=== PATIENT | female | born 1995 | race African-American/Black ===

== ENCOUNTER 2019-02-14 01:14 | Emergency (ER) | payer SELFPAY ==
[2019-02-14] MEDS ORDERED: Lidocaine 1% w/Epinephrine 1:100K 20 ML VIAL ONE (02:40)
[2019-02-14] MEDS ORDERED: Lidocaine 1% (PF) 30 ML VIAL ONE (02:41)
== END 2019-02-14 03:32 | disposition home or self-care (01) ==
LOC: ERS 01:14
DX: N61.1 Abscess of the breast and nipple (principal); F32.9 Major depressive disorder, single episode, unspecified
CPT/HCPCS: 10060; 87070; 87076; 87205; J2001